=== PATIENT | female | born 1980 | race Caucasian/White ===

== ENCOUNTER → 2016-08-06 | Outpatient (CLI) | payer OTHER ==
--- NOTE | 2016-08-06 10:55 | REP ---
PELVIC SONOGRAPHY: HISTORY: Pelvic and perineal pain. Comparison pelvic sonography is from July 19, 2008. FINDINGS: Transabdominal and transvaginal scanning are performed. Uterine dimensions are normal at 8.7 x 4.5 x 5.0 cm. Endometrial echo is 1.3 cm and centrally placed. No focal uterine mass is seen. There is a small quantity of fluid in the cul-de-sac consistent with physiologic blood fluid. Visualized bladder manuel are smooth. The right ovary measures 4.7 x 2.0 x 2.3 cm. There is a hypoechoic area in the right ovary measuring 2.1 cm in greatest diameter compatible with resolving cyst. Resistive index in the right ovary is normal by Doppler at 0.61. The left ovary measures 2.7 x 1.5 x 2.4 cm. Its resistive index is normal at 0.69. IMPRESSION: No significant abnormality. Signed by Marvin Mota MD 08/06/2016 12:49 P
== END ==
LOC: M RAD 09:41
PROVIDERS: ATTEND Family Medicine
DX: R10.2 Pelvic and perineal pain (principal)